=== PATIENT | female | born 1930 | race Caucasian/White ===

== ENCOUNTER 2019-03-26 10:54 | Inpatient (IN) ==
[2019-03-26] MEDS ORDERED: ZOSYN 4.5 GM in NS 100 ML IV ONE (11:54)
[2019-03-26] MEDS ORDERED: NS 1,000 ML IV ONE ×4 (11:54→16:26)
[2019-03-26 12:59] LABS: INR 1.04; PROTIME 13.7 Seconds (11.0-16.0)
[2019-03-26 13:00] LABS: PTT 26.4 Seconds (22.3-41.8)
[2019-03-26 13:04] LABS: BASO# 0.02 X1000 (0.0-0.2); BASO% 0.1 % (0.0-0.8); HEMATOCRIT 31.3 % (37.0-47.0); HEMOGLOBIN 9.9 g/dL (12.0-16.0); IMM GRAN# 0.38 X1000 (0.0-0.04); IMM GRAN% 1.2 % (0.0-0.5); LYMPH# 2.27 X1000 (1.2-3.4); MCH 29.6 PG (27-31); MCHC 31.6 g/dL (33-37); MCV 93.7 FL (81-99); MONO% 6.5 % (1.7-9.3); MPV 11.5 FL (7.4-10.4); NEUT# 27.53 X1000 (1.4-6.5); NEUT% 85.2 % (42.2-75.2); PLT 280 X1000 (130-400); RBC 3.34 XMIL (4.2-5.4); RDW 13.2 % (11.5-14.5)
[2019-03-26 13:20] LABS: ALB/GLOB RATIO 1.6; CALCIUM 8.5 mg/dL (8.8-10.2); CREATININE 1.3 mg/dL (0.5-0.9); TOTAL BILIRUBIN 0.34 mg/dL (0.20-1.00); TOTAL PROTEIN 4.9 g/dL (6.3-8.3)
[2019-03-26] MEDS ORDERED: ALBUTEROL NEB INH ONE (13:30)
[2019-03-26] MEDS ORDERED: LASIX IV ONE (13:30)
[2019-03-26] MEDS ORDERED: SODIUM BICARBONATE 8.4% IV ONE (13:30)
[2019-03-26] MEDS ORDERED: D50W SYRINGE IV ONE (13:30)
[2019-03-26] MEDS ORDERED: CALCIUM CHLORIDE SYRINGE IV ONE (13:30)
[2019-03-26] MEDS ORDERED: HUMULIN R IV ONE (13:30)
[2019-03-26 13:55] LABS: LYMPHS 8 % (21-51); MONO 4 % (1-9); SEGS 88 % (42-75)
--- NOTE | 2019-03-26 14:15 | EKG Report ---
Test Performed on : 03/26/2019 1:45:00 PM Test Reason : gi bleed Blood Pressure : / mmHG Vent. Rate : 090 BPM Atrial Rate : 090 BPM P-R Int : 136 ms QRS Dur : 070 ms QT Int : 354 ms P-R-T Axes : 065 063 077 degrees QTc Int : 433 ms Normal sinus rhythm. Normal ECG No previous ECGs available Unconfirmed Result
[2019-03-26 14:26] LABS: ALLEN TEST NO; BE 9.3 mmoll (-3.0-3.0); BLOOD TYPE ARTERIAL; HCO3-(ACT) 32.2 mmoll (20.0-26.0); METHB 1.1 % (0.0-1.5); O2(CT) 9.1 mL/dL (15.0-23.0); O2HB 96.8 % (95.0-99.0); PCO2(98.6) 35 mmHg (35-45); PO2(98.6) 111 mmHg (60-100); SAMPLE BLOOD; SAO2 98.7 % (95.0-100.0); THB 6.5 g/dL (11.5-17.4)
[2019-03-26 14:28] LABS: MODALITY CANNULA
[2019-03-26 14:29] LABS: pH(98.6) 7.57 (7.35-7.45)
[2019-03-26] MEDS ORDERED: NS 500 ML IV ONE (14:31)
[2019-03-26] MEDS ORDERED: LEVOPHED 8 MG in D5 1/2 NS 250 ML IV SCH (14:45)
[2019-03-26] MEDS ORDERED: VANCOMYCIN IV PER PHARMACY MISC SCH (16:01)
[2019-03-26] MEDS ORDERED: PROTONIX IV SCH (16:01)
[2019-03-26] MEDS ORDERED: SODIUM CHLORIDE 0.9% INJ SCH (16:01)
[2019-03-26] MEDS ORDERED: MAXIPIME 1 GM in NS 50 ML IV SCH (16:01)
[2019-03-26] MEDS ORDERED: NEO-SYNEPHRINE 50 MG in NS 250 ML IV SCH (16:30)
--- NOTE | 2019-03-26 16:40 | EKG Report ---
Test Performed on : 03/26/2019 2:26:41 PM Test Reason : ED. NO EKG ORDER FOR MUSE Blood Pressure : / mmHG Vent. Rate : 104 BPM Atrial Rate : 104 BPM P-R Int : 136 ms QRS Dur : 080 ms QT Int : 326 ms P-R-T Axes : 078 042 061 degrees QTc Int : 428 ms Sinus tachycardia. with premature atrial complexes. Otherwise normal ECG When compared with ECG of 26-MAR-2019 13:45, (Unconfirmed) premature atrial complexes. are now present Unconfirmed Result
[2019-03-26 16:49] LABS: HEMATOCRIT 27.3 % (37.0-47.0); HEMOGLOBIN 8.5 g/dL (12.0-16.0)
[2019-03-26] MEDS ORDERED: PITRESSIN 40 UNIT in NS 100 ML IV SCH (17:00)
[2019-03-26] MEDS ORDERED: NS 500 ML ONE ×2 (17:08→18:31)
[2019-03-26] MEDS ORDERED: REGLAN IV ONE (17:15)
[2019-03-26] MEDS ORDERED: VANCOMYCIN 1.2 GM in NS 250 ML IV ONE (17:30)
[2019-03-26] MEDS ORDERED: XYLOCAINE-MPF 2% ONE (17:45)
[2019-03-26] MEDS ORDERED: AMIDATE ONE (17:45)
[2019-03-26] MEDS ORDERED: NS 1,000 ML IV SCH (17:45)
[2019-03-26] MEDS ORDERED: QUELICIN (DOSE) ONE (17:47)
[2019-03-26] MEDS ORDERED: CALCIUM CHLORIDE SYRINGE ONE (17:54)
[2019-03-26] MEDS ORDERED: CALCIUM CHLORIDE 1 GM in NS 100 ML IV ONE (18:00)
--- NOTE | 2019-03-26 18:19 | GASTROENTEROLOGY CONSULTATION ---
DATE: 03/26/2019 REASON FOR CONSULTATION: Upper GI bleed. HISTORY OF PRESENT ILLNESS: Ms. Juan Pierre is an 89-year-old woman with past medical history of hypothyroidism, peripheral neuropathy, history of brain cancer, cervical stenosis, who presents with acute gastrointestinal bleeding with dark melenic stools. In the ER, she was found to be hypotensive with blood pressure systolics in the 80s, tachycardic to 120s, and requiring a nonrebreather. The patient denies any abdominal pain. No nausea or vomiting. She has had multiple black stools. She received 2 units of packed red blood cells in the ED. In the ICU, she was bolused 2 L of normal saline, received a unit of blood, an IO was placed and a right femoral central line was placed emergently. The patient's blood pressure prior to placing central lines was in the 40s systolic and tachycardia in the 130s to 140s. Discussion with the family, particularly the , said that he ultimately does not want her to have chest compressions, but is agreeable for intubation and medications. She has not had a GI bleed like this in the past. REVIEW OF SYSTEMS: Unable to obtain. The patient is awake. She denies any pain. PHYSICAL EXAMINATION: Current vital signs: Last seen blood pressure of 110s over 70s, breathing in the 30s to 40s on a nonrebreather, saturating approximately 90%. General: Patient is pale, lethargic, opens eyes, tracks. HEENT: Sclerae anicteric. Moist mucous membranes. Extraocular movement intact. Neck: Supple. No JVD. Lungs: Tachypneic. Clear to auscultation anteriorly. Abdomen: Soft, nontender, nondistended. Normal bowel sounds. Extremities: Cool. No edema. Neurologic: Moves all extremities symmetrically. LABORATORY DATA: White count of 32.3, hemoglobin of 8.5, platelets of 280,000. INR of 1.04. PH of 7.57, PCO2 of 35, lactate of 4.6. Sodium of 136, potassium of 6.0, chloride of 101, bicarbonate 21, BUN of 100, creatinine of 1.3, glucose of 137. LFTs are unremarkable. Troponin high sensitivity is 67. IMAGING: None. She had MRI of the brain earlier this year on March 04, that shows enlarging left frontal mass compared to 2012 and 2018. ASSESSMENT AND PLAN: Ms. Juan Pierre is an 89-year-old female who presents with acute gastrointestinal bleed with hemorrhagic shock with elevated lactate, hypotension, and tachycardia. She has been transfused a total of 3 units, and is currently getting her fourth unit of blood and getting IV fluid boluses. She has gotten PPI IV once. Today, she is on antibiotics with cefepime and vancomycin for empiric sepsis treatment. I am going to give her some Reglan now and plan for urgent emergent diagnostic and therapeutic EGD if possible. I have talked to the family and informed them that her prognosis overall is guarded and that she is at high risk for expiring before or after the procedure, or during the procedure. They communicated understanding and wanted to do whatever is possible to help her. We will continue to trend her hemoglobin and hematocrit post transfusion. Further recommendations after procedure.
[2019-03-26] MEDS ORDERED: NS 1,000 ML ONE (18:27)
[2019-03-26 19:05] LABS: INR 4.79; PROTIME 46.6 Seconds (11.0-16.0)
[2019-03-26 19:12] LABS: BASO# 0.04 X1000 (0.0-0.2); BASO% 0.2 % (0.0-0.8); EOS# 0.01 X1000 (0.0-0.7); EOS% 0.1 % (0.0-10.0); HEMATOCRIT 37.1 % (37.0-47.0); HEMOGLOBIN 11.3 g/dL (12.0-16.0); IMM GRAN# 0.84 X1000 (0.0-0.04); IMM GRAN% 4.8 % (0.0-0.5); LYMPH# 5.01 X1000 (1.2-3.4); LYMPH% 28.6 % (20.5-51.1); MCH 26.8 PG (27-31); MCHC 30.5 g/dL (33-37); MCV 88.1 FL (81-99); MONO# 0.49 X1000 (0.11-0.59); MONO% 2.8 % (1.7-9.3); MPV 10.4 FL (7.4-10.4); NEUT# 11.14 X1000 (1.4-6.5); NEUT% 63.5 % (42.2-75.2); RBC 4.21 XMIL (4.2-5.4); RDW 19.2 % (11.5-14.5); WBC 17.53 X1000 (4.8-10.8)
[2019-03-26 19:15] LABS: ALB/GLOB RATIO 1.3; ALBUMIN 0.8 g/dL (3.5-5.0); CALCIUM 10.3 mg/dL (8.8-10.2); CREATININE 1.2 mg/dL (0.5-0.9); TOTAL BILIRUBIN 0.27 mg/dL (0.20-1.00); TOTAL PROTEIN 1.4 g/dL (6.3-8.3)
[2019-03-26 19:17] LABS: PLT 30 X1000 (130-400)
[2019-03-26 19:18] LABS: POTASSIUM 6.1 mmol/L (3.5-5.1)
[2019-03-26] MEDS ORDERED: CALCIUM CHLORIDE ONE (19:48)
[2019-03-26] MEDS ORDERED: SODIUM BICARBONATE 8.4% ONE (19:48)
[2019-03-26] MEDS ORDERED: EPINEPHRINE SYRINGE ONE (19:48)
--- NOTE | 2019-03-26 19:54 | HISTORY AND PHYSICAL ---
PRIMARY CARE PROVIDERS: Emmanuel Howell MD ONCOLOGY RADIOLOGIST: Lilly Morgan MD CHIEF COMPLAINT: GI bleed. HISTORY OF PRESENT ILLNESS: Ms. 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 She has now had a recurrence that was diagnosed again 3 weeks ago. She had plan again for radiation with Dr. Morgan in the near future. Other past medical history is hypertension, hypothyroidism, neuropathy. Family at bedside provided history. They stated on the , she was at [facility] ED for constipation, was given mag citrate. She had a rather large BM yesterday that was normal in color. This a.m. she had a black bloody bowel movement, then again a couple hours later she passed a large blood clot. So her family brought her to the ED to be evaluated. She has had several bloody bowel movements while she has been in the ED. She was given 2 units of emergency blood. Her blood pressures continued to drop. She had to be placed on a Levophed drip. She was having to get treatment for hyperkalemia. Her white count was 32. Unsure if she has had some aspiration pneumonia, so she will be started on broad-spectrum antibiotics. She has a lactate of 4 and a potassium of 6 for which she received treatment. Acute kidney injury. GI has been consulted and she will be moved to the ICU for further care and treatment. She was not able to be stabilized to travel to [place] for her studies. PAST MEDICAL HISTORY: A rare brain cancer with recurrence. She has had radiation in the past, but was not followed by any particular oncologist, just Dr. Morgan per at the bedside. Hypertension, hypothyroidism, neuropathy, hiatal hernia. PAST SURGICAL HISTORY: Hiatal hernia repair, appendectomy, cholecystectomy, hysterectomy, tonsillectomy. FAMILY HISTORY: Reviewed, not pertinent. SOCIAL HISTORY: She is . and granddaughter at bedside. No alcohol, tobacco, or illicit drug use. 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 No known drug allergies. MEDICATIONS: Home medications are being compiled. REVIEW OF SYSTEMS: Hard to obtain. The patient would move around, however, she would not answer any of my questions or really follow any commands, but she would fix her covers on her own. PHYSICAL EXAMINATION: VITAL SIGNS: Temperature is 97.4 degrees, heart rate 121, respirations 30, blood pressure labile, but currently 111/78, O2 saturations are 100% on non-rebreather. She would dip down into the 60s with maps in the 40s. HEENT: She does have some deformity to her upper scalp area. This is currently covered with a cap that she has on. It does appear to have some old scarring. Her oral mucosa is pale, dry. NECK: Supple. Trachea midline. CV: S1-S2 appreciated. She is tachycardic. No murmurs, gallops, or rubs noted. RESPIRATORY: Lung sounds, scattered rhonchi throughout all lung gilbert. GASTROINTESTINAL: Soft, nontender. Positive bowel sounds. : She did have red stool evident upon examination. NEUROLOGIC: The patient will move on her own; however, when you tried to get her to look at you or squeeze her hand, she did not follow any commands; however, she would fix her covers on her own. DIAGNOSTIC DATA: Unfortunately, we were unable to obtain any secondary to the patient being too unstable to travel with her blood pressures even with pressors and emergent blood. LABORATORY DATA: White count 32, H H 9 and 31, platelets 280,000. PT 13, INR 1, PTT 26. Lactate was 4.6. Sodium 136, potassium 6.0, carbon dioxide 21. BUN 100, creatinine 1.3, blood glucose 137. Troponin 67. ASSESSMENT/PLAN: 1. Acute hemorrhagic shock secondary to gastrointestinal bleed. The patient has had 2 units of emergent blood. Currently given a third units at this time. Rechecking stat labs. She is currently on pressors. We are adding a 2nd pressor. Gastrointestinal has been consulted. We will continue with b.i.d. proton pump inhibitor per their recommendation. Supportive care could not rule out a diverticular bleed as the patient was too unstable to travel to [place]. 2. Septic shock, possible aspiration pneumonia. The patient does have a white count of 32. Could be diverticulitis unsure again. We will treat her with broad-spectrum antibiotics. Again, we are unable to get any imaging. She does have a lactate of 4.6 and a white count of 32, and she was hypotensive and tachycardic. 3. Hyperkalemia. She did receive hypokalemic treatment. We will recheck her potassium level now. 4. Acute kidney injury. I will continue with aggressive IV hydration. 5. Known rare brain cancer. She was in remission. She just had a reoccurrence. She was supposed to undergo radiation again with Dr. Morgan. We will consult Oncology. Await their recommendations. 6. Hypertension. We will hold off on any antihypertensives. 7. Hypothyroidism. We will continue Synthroid when appropriate. 8. Further recommendations to follow physician evaluation, laboratory and diagnostic data. Dictated by TRU Whitfield for Lonnie Perez MD cc: Lonnie Perez MD MTDD
[2019-03-26 20:18] LABS: BANDS 6 % (0-1); LYMPHS 13 % (21-51); SEGS 81 % (42-75)
--- NOTE | 2019-03-26 21:03 | PROGRESS NOTE ---
DATE: 03/26/2019 Ms. Juan Pierre is an 89-year-old, female, who was admitted because of GI bleed. I understand she was extremely hypotensive, was admitted for acute hemorrhagic shock. In the short course of the hospital stay, she got transfused 7 PRBCs, 1 FFP. GI evaluated her. However, she remained extremely hypotensive, so they could not do any procedure. I was the late call physician. I came to evaluate her after a Code Blue was called. When I came, the patient was without any pulse. Prior to my arrival, the family had already made her DNR level 1, only medications, but no intubation and no chest compressions. After I arrived, the attending nurse was going to talk to the family, so I accompanied her and we did explain to the family including the about Ms. Pierre's state of not having any pulse and if he wanted us to continue with the medications alone. At that point, he made a decision that we should stop giving her any medication and no intubation and no chest compressions either. When we came back, Ms. Pierre was without any signs of vitality. She was subsequently pronounced by the attending nurse and the [employer]. Please refer to the details of the note. cc: Justin Arceo MD
--- NOTE | 2019-03-26 21:08 | OPERATIVE NOTE ---
PROCEDURE DATE: 03/26/2019 PREOPERATIVE DIAGNOSIS: Gastrointestinal bleed with hypotension and phlebosclerosis. POSTOPERATIVE DIAGNOSIS: Gastrointestinal bleed with hypotension and phlebosclerosis. PROCEDURES: Ultrasound-guided right common femoral vein central line placement. SURGEON: Efrain Hassan MD. SLIDE ATTENDANT: None. ANESTHESIA: Local, administered by the surgeon. FINDINGS: Hypovolemic, with a flattened common femoral vein. COMPLICATIONS: None at the time of this dictation. ESTIMATED BLOOD LOSS: 5 mL. SPECIMENS REMOVED: None. BRIEF HISTORY: An 89-year-old female came with a GI bleed. She needed emergent IV access. They were working mostly with an interosseous for access. It was felt that she would benefit from a central line. Consent was obtained emergent with two physician discussion with Dr. De La Vega. DESCRIPTION OF PROCEDURE: After consent was emergently obtained, patient remained in her ICU. The right groin was prepped and draped in sterile fashion. Using the ultrasound to identify the common femoral vein, after local anesthetic, I was able to cannulate it. The vein itself was very decompressed, but we were able to get nonpulsatile dark blood. Using the Seldinger technique, I dilated up the tract. All ports aspirated and flushed, although they were somewhat fickle given the decompression and the flattening of the vein. We secured it in place. They connected it and they placed a sterile dressing. The patient tolerated the procedure well. Remained in the ICU. cc: Efrain Hassan MD
--- NOTE | 2019-03-26 22:15 | DISCHARGE SUMMARY ---
DATE: 03/26/2019 TIME OF CODE: 1939 hours. This is an 89-year-old female who was brought into the ICU with a GI bleed. From what I understood, she was transfused 7 units of packed red blood cells and 1 unit of FFP. At 1939 tonight, she spontaneously lost her pulse. She was in PEA. She was given epinephrine. She was a DO NOT RESUSCITATE level 2, and a chemical code was all that requested. She was given a total of 2 epinephrines. She went into bigeminy. She had a Dopplered pulse at around 1943. She went into ventricular tachycardia with her pulse at 1949 on 150 mg of amiodarone. The family then stated that they wanted no additional medications to be given. The Code was then ceased. The patient fairly rapidly lost a pulse and went PEA asystole, with a time of of 1949. Dr. Arceo spoke with the family, who were all in agreement with the decision. Dictated by TRU Tinajero for Meet Verdugo MD cc: TRU Tinajero MD
[2019-03-26 22:16] VITALS: BP 64/48
[2019-03-28] MEDS ORDERED: VANCOMYCIN 900 MG in NS 250 ML IV SCH (17:30)
== END 2019-03-26 19:54 | disposition expired | DRG 871 ==
LOC: SUPCPDRO → ED 10:54 → ICU 15:16
PROVIDERS: ATTEND Internal Medicine